=== PATIENT | male | born 1970 | race Caucasian/White ===

== ENCOUNTER 2025-10-27 05:51 | Day surgery (SDC) | payer BC ==
[2025-10-26 09:58] VITALS: BMI 30.1
[2025-10-27 06:40] LABS: #Basophils 0.06 10x3/uL (0.0-0.2); #Eosinophils 0.30 10x3/uL (0.0-0.7); #Monocytes 0.85 10x3/uL (0.11-0.59); #Neutrophils 4.16 10x3/uL (1.40-6.50); %Basophils 0.7 % (0.0-1.0); %Eosinophils 3.6 % (0.0-10.0); %Lymphocytes 34.3 % (21.0-51.0); %Monocytes 10.3 % (0.0-10.0); %Neutrophils 50.6 % (42.0-75.0); Hematocrit 41.9 % (42.0-52.0); Hemoglobin 14.4 g/dL (14.0-18.0); Mean Corpuscular Hemoglobin 31.2 pg (27.0-31.0); Mean Corpuscular Volume 90.9 fL (78.0-98.0); Platelet Count 197 10x3/uL (130-400); Red Blood Cell (RBC) Count 4.61 mill/uL (4.70-6.10); White Blood Cell (WBC) Count 8.23 10x3/uL (4.8-10.8)
[2025-10-27] MEDS ORDERED: Collagenase Clostridium Hist. 0.9 MG VIAL ONE (07:00)
[2025-10-27] MEDS ORDERED: Collagenase Clostridium Hist. 0.9 MG VIAL IJ SCH (07:15)
[2025-10-27] MEDS ORDERED: PROPOFOL 200 MG/20 ML VIAL ONE (07:20)
== END 2025-10-27 08:24 | disposition home or self-care (01) ==
LOC: SDC 05:51
PROVIDERS: ATTEND Orthopaedic Surgery Hand Surgery
PROC: 3E013TZ Introduction of Destructive Agent into Subcutaneous Tissue, Percutaneous Approach (ICD-10-PCS; principal; 2025-10-27)
DX: M72.0 Palmar fascial fibromatosis [Dupuytren] (principal); Z90.49 Acquired absence of other specified parts of digestive tract; Z98.52 Vasectomy status; Z98.890 Other specified postprocedural states
CPT/HCPCS: 85025; J0775; J2704